=== PATIENT | female | born 1985 | race Caucasian/White ===

== ENCOUNTER 2020-04-19 20:06 | Emergency (ER) | payer BC, SELFPAY ==
[2020-04-19 20:10] VITALS: BP 154/94; PULSE 96; RESP 20; TEMP 36.7; O2SAT 97
--- NOTE | 2020-04-19 23:04 | ED.LOWEXIN ---
HPI - Extremity Injury (Lower) General Chief Complaint: Extremity Injury, Lower Stated Complaint: toe nail fell off Time Seen by Provider: 04/19/20 20:27 Source: patient Mode of arrival: ambulatory Limitations: no limitations History of Present Illness HPI Narrative: This is a 35 year old female that presents to the ER for toenail avulsion just prior to arrival. Reports she hit the toe on a step. Denies joint pain or numbness. Related Data Allergies Allergy/AdvReac Type Severity Reaction Status Date / Time No Known Allergies Allergy Verified 04/19/20 20:12 Review of Systems Review of Systems: Narrative: CONSTITUTIONAL: Denies fever MUSCULOSKELETAL: Denies joint pain N PMFSH Past Medical History Medical History (Updated 04/19/20 @ 23:22 by Yaneli Mukherjee PA-C) History of depression History of insomnia Exam Narrative: Exam Narrative: GENERAL: Well-appearing, well-nourished, and in no acute distress. HEAD: Normocephalic, atraumatic. EYES: EOMI. EXTREMITIES: Normal range of motion. No edema. Left great toenail with avulsion of the medial nailfold SKIN: Warm, dry, no rash. NEURO: No focal deficits. Alert and oriented x3. PSYCH: Normal mood and affect Course Vital Signs Vital signs: Vital Signs Temperature 98.0 F 04/19/20 20:10 Pulse Rate 96 04/19/20 20:10 Respiratory Rate 20 04/19/20 20:10 Blood Pressure 154/94 H 04/19/20 20:10 Pulse Oximetry 97 04/19/20 20:10 Temperature 98.0 F 04/19/20 20:10 Pulse Rate 96 04/19/20 20:10 Respiratory Rate 20 04/19/20 20:10 Blood Pressure 154/94 H 04/19/20 20:10 Pulse Oximetry 97 04/19/20 20:10 MDM - Extremity Injury (Lower) MDM Narrative Medical decision making narrative: Patient presents to the emergency department for partial toenail avulsion. Medial proximal nail fold of the great toe on the left avulsed. The was re-approximated to protect nail bed. Patient educated on wound care. She was updated on tetanus. She is to follow up with her refrigerator car icer. Patient was given warnings to return to the ER Critical Care Time Critical Care Time Critical Care Time: No Discharge Plan Discharge Clinical Impression: Avulsion of toenail of left foot Patient Disposition: Home, Self-Care Condition: Stable Instructions: Nail Avulsion (ED) Additional Instructions: Return to the emergency department if you experience fever, redness and swelling of your toe, or any other symptoms that are concerning to you Clean area with mild soap and water. Apply antibiotic ointment. Tylenol or ibuprofen as needed for pain Follow-up with your refrigerator car icer Follow-up/Referrals: Maribel,Guero Puckett MD [Primary Care Provider] - Discharge Date/Time: 04/19/20 23:21
[2020-04-19] MEDS: TETANUS,DIPHTHERIA,AC PERTUSSIS ADULT (0.5 ML) BOOSTRIX IM (23:17)
[2020-04-19 23:20] VITALS: BP 129/81; PULSE 90; RESP 16; O2SAT 99
== END 2020-04-19 23:21 | disposition home or self-care (01) ==
PROVIDERS: Emergency Provider Emergency Medicine; PCP Family Medicine
DX: S91.202A Unspecified open wound of left great toe with damage to nail, initial encounter (principal); Z23 Encounter for immunization; W22.8XXA Striking against or struck by other objects, initial encounter
CPT/HCPCS: 90471; 90715; 99282